=== PATIENT | female | born 1950 | race Two or more races ===

== ENCOUNTER → 2017-01-06 | Outpatient (CLI) | payer OTHER ==
[~2017-01-06] MED LIST: SIMV40TA2 PO
== END | disposition home or self-care (01) ==
LOC: HKI 13:17 → MERGE 13:30
PROVIDERS: ATTEND Orthopaedic Surgery Adult Reconstructive Orthopaedic Surgery
DX: Z01.818 Encounter for other preprocedural examination (principal)
CPT/HCPCS: G0463

== ENCOUNTER 2017-01-14 10:46 | Day surgery (SDC) | payer OTHER ==
--- NOTE | 2017-01-06 14:21 | HKNOTE ---
DATE OF SERVICE: 01/06/2017 Ms. Marquis returned today for her preoperative evaluation. I discussed the risks associated with left knee arthroscopy. The risks include but are not limited to infection, deep venous thrombosis, damage to neurovascular structures, numbness, wound healing problems, progression of arthritis, nee d for a knee replacement in the future, heart attack, stroke, risks associated with anesthesia and e kenisha . Informed consent was obtained. All questions were answered to her satisfaction. The pl an is to proceed with a left knee arthroscopy with partial lateral meniscectomy on 01/14/2017. Dictated By: HORTENSIA SHEEHAN MD SS/NTS Conf#: [id number] DID#: [id number]
[2017-01-14] VITALS (12 sets, daily range): BP systolic 119–157; BP diastolic 57–78; PULSE 61–84; RESP 14–18; Ht 154.9 cm; Wt 84.6 kg
[~2017-01-14] VITALS: Ht 154.9 cm; Wt 84.6 kg
--- NOTE | 2017-01-14 10:53 | HPN ---
Date/Time of Note Date/Time of Note DATE: 01/14/17 TIME: 10:53 Interval H&P Admission Note Pt. seen H&P reviewed: No system changes LUIZ LAWLER PA-C Jan 14, 2017 10:53
[2017-01-14] MEDS ORDERED: ASPI-664 PO (12:02)
[2017-01-14] MEDS ORDERED: oxyCODONE (CR) 10 MG TAB [oxyCONTIN] PO ONE (12:30)
[2017-01-14] MEDS ORDERED: ONDANSETRON 4 MG INJ IV ONE (12:30)
[2017-01-14] MEDS ORDERED: DEXAMETHASONE 4 MG/ML 1 ML INJ IV ONE (12:30)
[2017-01-14] MEDS ORDERED: LANSOPRAZOLE 30 MG CAP PO ONE (12:30)
[2017-01-14] MEDS ORDERED: CEFAZOLIN 2 GM/50 ML (PMX) 50 ML IVPB ONE (12:30)
[2017-01-14] MEDS ORDERED: LACTATED RINGER'S 1,000 ML IV* SCH (12:30)
[2017-01-14] MEDS ORDERED: CELECOXIB 200 MG CAP PO ONE (12:30)
[2017-01-14] MEDS ORDERED: ACETAMINOPHEN 1000MG/100ML IV 100 ML IVPB ONE (12:30)
[2017-01-14] MEDS ORDERED: GLYCOPYRROLATE 0.4 MG INJ ONE (13:32)
[2017-01-14] MEDS ORDERED: MIDAZOLAM 1 MG/ML 2 ML INJ ONE (13:32)
[2017-01-14] MEDS ORDERED: PROPOFOL 20 ML ONE (13:32)
[2017-01-14] MEDS ORDERED: CEFAZOLIN 1 GM INJ ONE (13:32)
[2017-01-14] MEDS ORDERED: ROCURONIUM 50 MG INJ ONE (13:32)
[2017-01-14] MEDS ORDERED: NEOSTIGMINE 3 MG/3 ML SYRINGE ONE (13:32)
[2017-01-14] MEDS ORDERED: FENTAnyl 50 MCG/ML VIAL ONE (13:33)
[2017-01-14] MEDS ORDERED: ONDANSETRON 4 MG INJ ONE (13:33)
[2017-01-14] MEDS ORDERED: DEXAMETHASONE 4 MG/ML 1 ML INJ ONE (13:33)
[2017-01-14] MEDS ORDERED: LIDOCAINE 1% (MPF) 30 ML INJ ONE (14:49)
[2017-01-14] MEDS ORDERED: TRIAMCINOLONE ACET 40 MG/ML INJ ONE (14:50)
[2017-01-14] MEDS ORDERED: KETOROLAC 30 MG INJ ONE (15:00)
[2017-01-14] MEDS ORDERED: morphine 10 MG INJ IV PRN (15:00)
[2017-01-14] MEDS ORDERED: HYDROCODONE/APAP (10/325) TAB PO PRN (15:00)
[2017-01-14] MEDS ORDERED: ONDANSETRON 4 MG INJ IV PRN ×3 (15:00→16:00)
[2017-01-14] MEDS ORDERED: HYDROCODONE/APAP (5/325) TAB PO PRN (15:00)
[2017-01-14] MEDS ORDERED: SUGAMMADEX SODIUM 200 MG/2 ML VIAL IV ONE (15:29)
--- NOTE | 2017-01-14 15:43 | SIPON ---
Date/Time of Note Date/Time of Note DATE: 01/14/17 TIME: 15:41 Operative Report Preoperative Diagnosis Right knee posterior horn medial meniscus tear Right knee posterior horn lateral meniscus tear Postoperative Diagnosis Right knee posterior horn medial meniscus tear Operation/Procedure Performed 1. Right knee arthroscopy with partial medial menisectomy 2. Right knee steroid injection Surgeon Cecy Fletcher MD [facility] Anesthesia: general Estimated blood loss: none Transfusion Required none Specimen none Grafts/Implants none Complications none CECY FLETCHER MD Jan 14, 2017 15:43
[2017-01-14] MEDS ORDERED: TRIMETHOBENZAMIDE 100 MG/ML VIAL IM PRN ×2 (16:00)
[2017-01-14] MEDS ORDERED: DIPHENHYDRAMINE 50 MG INJ IV PRN ×2 (16:00)
[2017-01-14] MEDS ORDERED: hydrALAzine 20 MG INJ IV PRN ×2 (16:00)
[2017-01-14] MEDS ORDERED: ALBUTEROL 0.083% (NEB) 2.5 MG/3 ML AMP HHN PRN ×2 (16:00)
[2017-01-14] MEDS ORDERED: FENTAnyl 50 MCG/ML VIAL IV PRN ×6 (16:00)
[2017-01-14] MEDS ORDERED: HYDROmorphONE (0.2 MG/ML) 10ML SYG IV PRN ×6 (16:00)
[2017-01-14] MEDS ORDERED: MEPERIDINE 25 MG INJ IV PRN ×2 (16:00)
[2017-01-14] MEDS ORDERED: LABETALOL HCL 20MG INJ IV PRN ×2 (16:00)
[2017-01-14] MEDS ORDERED: OXYCODONE/ACETAMINOPHEN (5/325) TAB PO PRN ×4 (16:00)
[2017-01-14] MEDS ORDERED: IPRATROPIUM (NEB) 0.5 MG/2.5 ML AMP HHN PRN ×2 (16:00)
[2017-01-14] MEDS ORDERED: EPHEDrine SULFATE 50 MG/5 ML SYG IV PRN ×2 (16:00)
[2017-01-14] MEDS ORDERED: MIDAZOLAM 1 MG/ML 2 ML INJ IV PRN ×2 (16:00)
--- NOTE | 2017-01-15 16:01 | OPR ---
DATE OF OPERATION: 01/14/2017 PREOPERATIVE DIAGNOSIS: 1. Right knee posterior horn medial meniscus tear. 2. Right knee posterior horn lateral meniscus tear. POSTOPERATIVE DIAGNOSIS: Right knee posterior horn medial meniscus tear. OPERATION PERFORMED: 1. Right knee arthroscopy with partial medial meniscectomy, CPT code 16565. 2. Right knee steroid injection. SURGEON: Hortensia Fletcher MD. SUPPORT STAFF: John Haines. ANESTHESIOLOGIST: Dr. Recinos. ANESTHESIA: General. ESTIMATED BLOOD LOSS: None. COMPLICATIONS: None. TOURNIQUET TIME: Twenty-three minutes at 250 mmHg. DISPOSITION: To PACU in stable condition. INDICATION FOR PROCEDURE: This is a 66-year-old female with right knee posterior horn medial meniscus tear who had failed nonoperative management. Risks, benefits, alternatives of surgical intervention were discussed with the patient and informed consent was obtained. DETAILS OF THE PROCEDURE: The patient was met in the preoperative suite and the correct operative site was confirmed and marked. She was then brought into operating room. After induction of general anesthesia, she was placed in the supine position on the operating table. A tourniquet was applied to the right upper thigh and the right lower extremity was prepped and draped in the usual sterile fashion. Before starting, a timeout was taken to identify the correct operative site and to confirm that preoperative antibiotics were given. At this point, the right leg was then exsanguinated and the tourniquet was then insufflated for the above noted time. A stab incision was made along the anterolateral aspect of the knee for the anterolateral portal. The trocar and arthroscope were then introduced. The patellofemoral joint was then visualized and no abnormalities were seen. The arthroscope was then introduced into the medial gutter. No loose bodies or plica were seen. The arthroscope was then introduced into the medial compartment. Upon entering the medial compartment, a tear of the posterior horn of the medial meniscus in the white-white zone was identified. The tear was noted to be complex and irreparable. Using a spinal needle, the determination of the medial portal was performed. A stab incision was made and a probe was then inserted into the medial compartment. The tear was further visualized. At this point, the 3.5 sucker shaver was then introduced and a partial medial meniscectomy of the posterior horn of the medial meniscus was performed. The meniscectomy was performed until there was a stable rim. The arthroscope was then introduced into the intercondylar notch. The anterior and posterior crucial ligaments were visualized and noted to be intact. The leg was then placed in a [id number]-[id number]-hysd position and the arthroscope was then introduced into the lateral compartment. No abnormalities were seen. No tear of the meniscus was identified. No chondromalacia was seen. All instruments were removed. There was no evidence of breakage. The knee was then injected with 40 mg of Kenalog, along with 4 mL of 1% lidocaine. The wounds were closed using 3-0 nylon. A sterile dressing and compression PALOMA wrap from toe to groin was applied. There were no complications. She was transferred to the postoperative care unit in stable condition for postoperative care. She will be weightbearing as tolerated. She will receive medications for pain control. She will be discharged home. She will follow up at the [facility] within 2 weeks postoperatively. Dictated By: HORETNSIA FALCON/JOSELUIS Conf#: [id number] DID#: [id number] MARI
== END 2017-01-14 17:35 | disposition home or self-care (01) ==
LOC: SDS 10:46 → MERGE 16:30 → SDS 17:35
PROVIDERS: ATTEND Orthopaedic Surgery Adult Reconstructive Orthopaedic Surgery
DX: M23.221 Derangement of posterior horn of medial meniscus due to old tear or injury, right knee (principal); M23.251 Derangement of posterior horn of lateral meniscus due to old tear or injury, right knee; E78.5 Hyperlipidemia, unspecified
CPT/HCPCS: 29880; J0131; J0690; J1100; J1885; J2250; J2405; J2710; J3010

== ENCOUNTER → 2017-01-27 | Outpatient (CLI) | END | disposition home or self-care (01) ==